=== PATIENT | female | born 1975 | race Caucasian/White ===

== ENCOUNTER 2020-05-28 18:11 | Emergency (ER) | payer OTHER, SELFPAY ==
--- NOTE | ~2020-05-28 | XR_ITS ---
XR ankle LT min 3V, XR foot LT min 3V 05/28/2020 18:47 Indication: Left foot and ankle swelling. History of ankle fracture. Procedure: 4 views left ankle and 4 views left foot Comparison: No prior studies for comparison. Findings: There is a side plate and screws transfixing the distal fibula. No acute fracture or trauma tic malalignment. Ankle mortise intact. Talar dome within normal limits. Small degenerative calcaneal enthesophyte. Impression: 1: No acute abnormality of the left ankle or foot. Reviewed, dictated and finalized at location A. Impression: 1: No acute abnormality of the left ankle or foot. Impression: 1: No acute abnormality of the left ankle or foot.
[2020-05-28 18:26] VITALS: BP 135/86; PULSE 78; RESP 20; TEMP 36.7; O2SAT 100
--- NOTE | 2020-05-28 18:31 | ED.GENADULT ---
HPI - General Adult General Chief complaint: Extremity Injury, Lower Stated complaint: Left foot pain/swollen Source: patient and RN notes reviewed Mode of arrival: ambulatory Limitations: no limitations History of Present Illness HPI narrative: This is a 45 years old female presents to the office for an evaluation of left foot/ankle injury yesterday. She was walking down the hill and rolled her ankle and fell down onto the grovel ground. She reports skin abrasion as result from injury. She admits to history of left ankle fracture from fall a few years ago which has had surgery with metal plate to hold her bone together. Denies head injury/trauma. She took tylenol prior to arrival. She asks for something strong for pain in the office. Related Data Allergies Allergy/AdvReac Type Severity Reaction Status Date / Time cefadroxil Allergy Unknown Itching Verified 05/28/20 18:14 CEFADROXIL HYDRATE Allergy Unknown Unknown Uncoded 11/17/19 16:21 Review of Systems Review of Systems: Narrative: CONSTITUTIONAL: Denies fever CARDIOVASCULAR: Denies chest pain, palpitation RESPIRATORY: Denies dyspnea, wheezing, cough GASTROINTESTINAL: Denies abdominal pain, nausea, vomiting SKIN: Reports skin abrasion MUSCULOSKELETAL: Reports left ankle and foot pain, swelling and redness NEUROLOGIC: Denies lightheaded All other systems reviewed are negative, except as documented in HPI. PMFSH Family History Family History Grandparent Family history of malignant neoplasm of breast Family history of malignant neoplasm of male breast Other Diabetes mellitus Family history of attention deficit hyperactivity disorder (ADHD) Family history of bipolar disorder Social History Social History Smoking status: Never smoker Second hand tobacco smoke exposure: No Alcohol intake: current Comments At time of signature, I agree with nursing past medical, surgical, social and family history. There is no relevant family history pertinent to the presenting complaint. Exam Narrative: Exam Narrative: GENERAL: This is a well-nourished, well-developed patient, in no apparent distress. CARDIOVASCULAR: Regular rate and rhythm without murmurs, gallops, or rubs. RESPIRATORY: Clear to auscultation. Breath sounds equal bilaterally. No wheezes, rales, or rhonchi. GASTROINTESTINAL: Abdomen soft, non-tender, nondistended. Bowel sounds are active. No hepato-splenomegaly, or palpable masses. No guarding. SKIN: warm, intact with no suspicious lesions or rash, good texture and turgor. NEURO: awake, alert, and oriented to person, place and time. There were no obvious focal neurologic abnormalities. EXTREMITIES: The ankle is swollen and tender over the lateral aspect; dorsal of foot also noted edematous and erythema with skin abrasion. The foot and toes are warm and well-perfused. Sensation to pain and light touch is intact. Pedal pulse intact. Patient appears in pain during examination. Course Vital Signs Vital signs: Vital Signs Temperature 98.1 F 05/28/20 18: Pulse Rate 78 05/28/20 18:26 Respiratory Rate 05/28/20 18:26 Blood Pressure 135/86 05/28/20 18:26 Pulse Oximetry 100 05/28/20 18:26 Temperature 98.1 F 05/28/20 18:26 Pulse Rate 78 05/28/20 18:26 Respiratory Rate 05/28/20 18:26 Blood Pressure 135/86 05/28/20 18:26 Pulse Oximetry 100 05/28/20 18:26 Medical Decision Making MDM Narrative Medical decision making narrative: Discharge instructions reviewed with patient, as well as provided in writing per nursing staff. The instructions also include specific and strict return/GO TO THE ER as well as f/u information. All questions have been answered, and the patient deny any further questions with discharge and discharge plan. Differential Diagnosis Differential Diagnosis: sprain, strain, contusion, fracture,
[2020-05-28] MEDS: TETANUS,DIPHTHERIA,AC PERTUSSIS ADULT (0.5 ML) BOOSTRIX IM (19:14)
== END 2020-05-28 19:35 | disposition home or self-care (01) ==
PROVIDERS: Emergency Provider Nurse Practitioner
DX: S93.402A Sprain of unspecified ligament of left ankle, initial encounter (principal); S96.912A Strain of unspecified muscle and tendon at ankle and foot level, left foot, initial encounter; X50.9XXA Other and unspecified overexertion or strenuous movements or postures, initial encounter; Z23 Encounter for immunization
CPT/HCPCS: 73610; 73630; 90471; 90715; 99213; G0463

== ENCOUNTER 2020-06-10 13:04 | Emergency (ER) | payer OTHER, SELFPAY ==
[2020-06-10 13:12] VITALS: BP 129/85; PULSE 80; RESP 14; TEMP 36.6; O2SAT 99
--- NOTE | 2020-06-10 13:18 | ED.LOWEXIN ---
HPI - Extremity Injury (Lower) General Chief Complaint: Extremity Injury, Lower Stated Complaint: Lower extremity injury Source: patient and RN notes reviewed Mode of arrival: ambulatory Limitations: no limitations Related Data Allergies Allergy/AdvReac Type Severity Reaction Status Date / Time cefadroxil Allergy Unknown Itching Verified 05/28/20 18:14 CEFADROXIL HYDRATE Allergy Unknown Unknown Uncoded 11/17/19 16:21 Review of Systems Review of Systems: Narrative: CONSTITUTIONAL: Denies malaise, chills, sweats, or fever. EYES: Denies visual changes, redness, or discharge. ENT: Denies rhinorrhea, congestion, sinus pain, otalgia or sore throat. CARDIOVASCULAR: Denies chest pain, palpitations, or edema. RESPIRATORY: Denies cough or dyspnea. GASTROINTESTINAL: Denies abdominal pain, nausea, vomiting, diarrhea, bloody, or mucous stools. GENITOURINARY: Denies dysuria or hematuria. SKIN: Denies rash or itching. MUSCULOSKELETAL: Denies back pain, joint pain, or myalgia. NEUROLOGIC: Denies numbness, weakness, or headache. PSYCHIATRIC: Denies anxiety or depression. All systems reviewed & are unremarkable except as noted in HPI and below PMFSH Social History Social History Smoking status: Never smoker Second hand tobacco smoke exposure: No Alcohol intake: current Comments At time of signature, agree with nursing past medical, surgical, social and family history. There is no relevant family history pertinent to the presenting complaint Exam Narrative: Exam Narrative: GENERAL: Well-appearing, well-nourished, and in no acute distress. HEAD: Normocephalic, atraumatic. EYES: PERRLA, conjunctivae clear NECK: Supple. CHEST: Speaks in full sentences. No respiratory distress. HEART: Regular rate and rhythm. Normal and equal peripheral pulses. EXTREMITIES: [Xxx] has normal strength and sensation, no edema, normal range of motion. 5/5 strength with [xxx] flexion and extension. Normal sensation with sensitivity to light touch and pain. No open wounds, no skin tenting, no devitalized tissue or atrophy, no trophic changes, no ecchymosis, no obvious deformity, alignment normal, no point tenderness, nearby joints and structures intact. Distal pulses palpable and equal bilaterally, skin warm, dry, pink. Capillary refill less than 3 seconds. SKIN: Warm, dry, no rash. NEURO: Alert and oriented x3. PSYCH: Normal mood and affect Course Course Emergency Course: Patient is aware of diagnosis, understands and agrees to treatment plan. Anticipatory guidance given. Patient agrees to follow-up as directed and is aware of reasons to seek care at the emergency department. Portions of this record may have been created with voice recognition software Vital Signs Vital signs: Vital Signs Temperature 97.8 F 06/10/20 13:12 Pulse Rate 80 06/10/20 13:12 Respiratory Rate 14 06/10/20 13:12 Blood Pressure 129/85 06/10/20 13:12 Pulse Oximetry 99 06/10/20 13:12 Temperature 97.8 F 06/10/20 13:12 Pulse Rate 80 06/10/20 13:12 Respiratory Rate 14 06/10/20 13:12 Blood Pressure 129/85 06/10/20 13:12 Pulse Oximetry 99 06/10/20 13:12 Reviewed. MDM - Extremity Injury (Lower) MDM Narrative Medical decision making narrative: Patients injury and/or pain is consistent with musculoskeletal etiology. No signs of neurological or vascular compromise on exam. Compartments and tissues are soft without signs of compartment syndrome. Pain is felt appropriate for further evaluation on an outpatient basis. Critical Care Time Critical Care Time Critical Care Time: No Discharge Plan Discharge Prescriptions: No Action tramadol 50 mg tablet 50 mg PO Q6H PRN (Reason: pain (scale score 7-10)) Qty: 10 RF: 0 cephalexin [Keflex] 500 mg capsule 500 mg PO Q8H 7 Days Qty: 21 RF: 0 cyclobenzaprine 10 mg tablet 10 mg PO TID PRN (Reason: muscle spasm) Qty: 30 RF: 0 lisinopril 10
== END 2020-06-10 13:25 | disposition left against medical advice (07) ==
PROVIDERS: Emergency Provider Nurse Practitioner
DX: Z53.21 Procedure and treatment not carried out due to patient leaving prior to being seen by health care provider (principal)
CPT/HCPCS: 99199

== ENCOUNTER 2023-04-27 16:55 | Emergency (ER) | payer OTHER, SELFPAY ==
[2023-04-27 17:14] VITALS: BP 120/80; PULSE 94; RESP 16; TEMP 36.4; O2SAT 99
--- NOTE | 2023-04-27 17:19 | ED.GENADULT ---
HPI - General Adult General Chief complaint: Skin/Abscess/Foreign Body Stated complaint: Laceration to Forehead Source: patient and RN notes reviewed Mode of arrival: ambulatory Limitations: no limitations History of Present Illness HPI narrative: Patient is a 48-year-old female who presents to the [facility] after hitting her head on a cabinet door. Patient states that she opened the door and accidentally hit herself in the head. She presents with a small superficial laceration above the right eyebrow with small hematoma surrounding. She denies loss consciousness. Denies numbness, weakness, difficulty walking, difficulty talking. She denies any visual disturbance. Reports pain around the right eyebrow. she is neurologically intact no obvious neurological deficits. She denies numbness, weakness, dizziness. However, she reports intermittent nausea since the incident. Related Data Home Medications Medication Instructions Recorded Confirmed buspirone 10 mg tablet 10 mg PO TID 04/27/23 04/27/23 Allergies Allergy/AdvReac Type Severity Reaction Status Date / Time cefadroxil Allergy Unknown Itching Verified 04/27/23 17:12 CEFADROXIL HYDRATE Allergy Unknown Unknown Uncoded 04/27/23 17:12 Review of Systems Review of Systems: CONSTITUTIONAL: Denies fever, chills, or sweats. EYES: Denies visual changes, redness, or discharge. ENT: Denies otalgia and sore throat CARDIOVASCULAR: Denies chest pain, palpitations, or edema. RESPIRATORY: Denies cough or dyspnea. GASTROINTESTINAL: Denies abdominal pain, vomiting, or diarrhea. Reports nausea. GENITOURINARY: Denies dysuria or hematuria. SKIN: Denies rash or itching. Small superficial laceration above the right eyebrow with surrounding hematoma. MUSCULOSKELETAL: Denies back pain, joint pain, or myalgia. NEUROLOGIC: Reports headache, denies numbness or weakness. Pertinent positives per HPI. [facility] Family History Family History Grandparent Family history of malignant neoplasm of breast Family history of malignant neoplasm of male breast Other Diabetes mellitus Family history of attention deficit hyperactivity disorder (ADHD) Family history of bipolar disorder Social History Social History Smoking status: Never smoker Second hand tobacco smoke exposure: No Alcohol intake: current Comments At the time of my signature, I reviewed and agree with the nursing past medical, surgical, social, and family history. There is no relevant family history pertinent to the patient complaint. Exam Narrative: GENERAL: This is a well-nourished, well-developed patient, in no apparent distress. HEAD: normocephalic. EYES: PERRL. Sclera clear/white. Vision is grossly intact. No visual disturbance. EARS: External ears normal. Hearing grossly intact. NOSE: External nose normal with no obvious nasal discharge, nares without redness, no rhinorrhea. THROAT: Mucous membranes moist, posterior pharynx clear. NECK: Neck supple, non-tender without lymphadenopathy, masses or thyromegaly. CARDIOVASCULAR: Regular rate and rhythm without murmurs, gallops, or rubs. RESPIRATORY: Clear to auscultation. Breath sounds equal bilaterally. No wheezes, rales, or rhonchi. GASTROINTESTINAL: Abdomen soft, non-tender, nondistended. Bowel sounds are active. No hepato-splenomegaly, or palpable masses. No guarding. SKIN: warm, intact with no suspicious lesions or rash, good texture and turgor. 1 cm superficial laceration above the right eyebrow with surrounding small hematoma. NEURO: awake, alert, and oriented to person, place and time. There were no obvious focal neurologic abnormalities. Course Course Level of Care: Express Care Visit Vital Signs Vital signs: Reviewed Medical Decision Making MDM Narrative Medical decision making narrative: Please keep wound clean and dry. You can apply a tr
== END 2023-04-27 17:24 | disposition home or self-care (01) ==
PROVIDERS: Emergency Provider Nurse Practitioner
DX: S01.81XA Laceration without foreign body of other part of head, initial encounter (principal); W22.8XXA Striking against or struck by other objects, initial encounter; I10 Essential (primary) hypertension; K22.10 Ulcer of esophagus without bleeding; F41.9 Anxiety disorder, unspecified; F32.A Depression, unspecified
CPT/HCPCS: 99212; G0463

== ENCOUNTER 2024-07-11 16:30 | Emergency (ER) | payer OTHER, SELFPAY ==
[2024-07-11 16:34] VITALS: BP 124/80; PULSE 86; RESP 20; TEMP 36.3; O2SAT 97
--- NOTE | 2024-07-11 16:42 | ED.LOWEXIN ---
HPI - Extremity Injury (Lower) General Stated Complaint: Left leg Source: patient Mode of arrival: ambulatory Limitations: no limitations History of Present Illness HPI Narrative: 49 y/o female presented for c/o Redness, swelling, and pain to the left ankle. She states yesterday the area felt like 'bruising,' and today she has had an increase in redness, swelling, warmth, and pain. Also reports some pain to right ankle and some patches of redness to right thigh. Denies injury. Reports hx left ankle fracture with surgical repair. Denies chest pain, palpitations, numbness, tingling or weakness of the extremities. has not seen a doctor in 20 years. Hx HTN and small airway disease. Related Data Home Medications Medication Instructions Recorded Confirmed No Home Medications 07/11/24 07/11/24 Allergies Allergy/AdvReac Type Severity Reaction Status Date / Time cefadroxil Allergy Unknown Itching Verified 04/27/23 17:12 CEFADROXIL HYDRATE Allergy Unknown Unknown Uncoded 04/27/23 17:12 Review of Systems Review of Systems: CONSTITUTIONAL: Denies body aches, fever, chills CARDIOVASCULAR: Denies chest pain, palpitations, or edema. RESPIRATORY: Denies cough or dyspnea. GASTROINTESTINAL: Denies abdominal pain, nausea, vomiting, or diarrhea. SKIN: Per HPI MUSCULOSKELETAL: reports ankle pain and swelling NEUROLOGIC: Denies headache, numbness, tingling, or weakness. All systems reviewed & are unremarkable except as noted in HPI and below PMFSH Past Medical History Medical History (Updated 07/11/24 @ 17:12 by Joy Yan APRN) Anxiety and depression Small airways disease Family History Family History Grandparent Family history of malignant neoplasm of breast Family history of malignant neoplasm of male breast Other Diabetes mellitus Family history of attention deficit hyperactivity disorder (ADHD) Family history of bipolar disorder Social History Social History Smoking status: Never smoker Second hand tobacco smoke exposure: No Alcohol intake: current Comments At time of signature, I have reviewed and agree with nursing past medical, surgical, social and family history unless otherwise noted. Please see nursing chart for further information. There is no relevant family history pertinent to the presenting complaint Exam Narrative: GENERAL: Chronically ill-appearing CHEST: Speaks in full sentences. No respiratory distress. HEART: Regular rate and rhythm. Normal and equal peripheral pulses. EXTREMITIES: Lower extremities have have normal strength and sensation, slightly limited range of motion at left ankle due to subjective pain with movement. Moderate erythema to left ankle, tender with minimal palpation, 2+ pitting edema. Right ankle tender with light palpation. No ecchymosis, No open wounds, or obvious deformity; alignment normal, pulses diminished bilaterally, skin warm, dry, pink. Capillary refill less than 3 seconds. SKIN: Warm, dry NEURO: Alert and oriented x3. PSYCH: Normal mood and affect Course Course Emergency Course: Patient is aware of diagnosis, understands and agrees to treatment plan. Anticipatory guidance given. Patient agrees to follow-up as directed and is aware of reasons to seek care at the emergency department. Portions of this record may have been created with voice recognition software Level of Care: Express Care Visit Vital Signs Vital signs: Vital Signs Temperature 97.3 F L 07/11/24 16:34 Pulse Rate 86 07/11/24 16:34 Respiratory Rate 20 07/11/24 16:34 Blood Pressure 124/80 07/11/24 16:34 Pulse Oximetry 97 07/11/24 16:34 Oxygen Delivery Room Air 07/11/24 16:34 Temperature 97.3 F L 07/11/24 16:34 Pulse Rate 86 07/11/24 16:34 Respiratory Rate 20 07/11/24 16:34 Blood Pressure 124/80 07/11/24 16:34 Pulse Oximetry
== END 2024-07-11 17:05 | disposition short-term general hospital (02) ==
LOC: EXPBETH 16:33
PROVIDERS: Emergency Provider Nurse Practitioner Family
DX: M25.572 Pain in left ankle and joints of left foot (principal); I10 Essential (primary) hypertension
CPT/HCPCS: 99212; G0463